=== PATIENT | female | born 1990 | race Caucasian/White ===

== ENCOUNTER 2025-08-29 17:53 | Emergency (ER) | payer OTHER ==
[~2025-08-29] VITALS: Ht 154.9 cm; Wt 60.3 kg
[2025-08-29 17:53] VITALS: BP 124/84; PULSE 72; RESP 20; TEMP 98.4; O2SAT 95
[2025-08-29 17:54] VITALS: BP 124/84; PULSE 72; RESP 20; TEMP 98.4; O2SAT 95
[2025-08-29 18:19] LABS: BASOPHIL # 0.0 10^3/uL (0.0-0.1); BASOPHIL % 0.6 % (0.1-1.2); EOSINOPHIL # 0.1 10^3/uL (0.0-0.2); EOSINOPHIL % 1.3 % (0.0-5.0); HEMATOCRIT(ML) 37.2 % (36.0-46.0); IG % 0.00 % (0.00-0.50); LYMPHOCYTES # 2.29 10^3/uL1 (1.0-4.8); LYMPHOCYTES % 43.6 % (24.0-44.0); MEAN CORP HGB 32.9 pg (26-34); MEAN CORP HGB CONCENTRATION 33.1 g/dL (33-36.5); MEAN CORP VOLUME 99.5 fL (78-100); MONOCYTES # 0.5 10^3/uL (0.3-0.8); MONOCYTES % 8.8 % (5.0-12.0); NEUTROPHIL # 2.4 10^3/uL (1.8-7.7); NEUTROPHILS % 45.7 % (41.0-85.0); RED BLOOD CELL 3.74 10^6/uL (4.00-5.20); RED CELL DISTRIBUTION WIDTH 12.3 % (11.5-14.5); WHITE BLOOD CELL 5.3 10^3/uL (4.5-11.0)
[2025-08-29 18:33] LABS: CREATININE SERUM 0.93 mg/dL (0.59-1.40); EST GFR, NON-AA 69.4 (>/=60)
== END 2025-08-29 20:20 | disposition home or self-care (01) ==
LOC: ER 17:53
DX: M54.50 Low back pain, unspecified (principal); J45.909 Unspecified asthma, uncomplicated; V89.2XXA Person injured in unspecified motor-vehicle accident, traffic, initial encounter; Y93.89 Activity, other specified; Y92.488 Other paved roadways as the place of occurrence of the external cause; Y99.8 Other external cause status
CPT/HCPCS: 36415; 72131; 80048; 84703; 85025; 99284